=== PATIENT | female | born 1950 | race Caucasian/White ===

== ENCOUNTER 2016-04-13 13:42 | Inpatient (IN) | payer MEDICARE, OTHER ==
[2016-04-13] VITALS (13 sets, daily range): BP systolic 80–105; RESP 22–33; TEMP 99.1; BMI 24.8
[~2016-04-13] VITALS: Ht 157.5 cm; Wt 63.8 kg
[~2016-04-13 13:42] MED LIST: BACITRACIN 50,000 UNITS INJ IRRIG ONE; CISATRACURIUM 20 MG/10 ML IV ONE; DILAUDID 1 MG/ML AMP IV ONE; FENTANYL 100 MCG/2 ML AMP IV ONE; GLYCOPYRROLATE 0.2 MG/ML VIAL IV ONE; NEOSTIGMINE 10 MG/10 ML VIAL IV ONE; PHENYLEPHRINE 10 MG/ML VIAL IV ONE; PROPOFOL 20 ML PER ML IV ONE
[2016-04-13] MEDS ORDERED: SODIUM CHLORIDE 0.9% 2,000 ML ONE (14:50)
[2016-04-13] MEDS ORDERED: CEFTRIAXONE 1 GM VIAL ONE (16:08)
[2016-04-13] MEDS ORDERED: SODIUM CHLORIDE 0.9% 100 ML IV ONE (16:09)
[2016-04-13] MEDS ORDERED: INSULIN DRIP 1 UNIT/ML 100 ML IV SCH ×2 (17:30→17:55)
[2016-04-13] MEDS ORDERED: DEXTROSE 50% SYRINGE 50 ML IV PRN ×2 (17:30→17:55)
[2016-04-13] MEDS ORDERED: SODIUM CHLORIDE 0.9% 1,000 ML ONE (17:39)
[2016-04-13] MEDS ORDERED: SOD BICARB 8.4% SYR 50 ML IV PRN (17:55)
[2016-04-13] MEDS ORDERED: LORAZEPAM 2 MG/ML VIAL IV PRN (17:55)
[2016-04-13] MEDS ORDERED: SODIUM CHLOR 0.9% W/KCL 20MEQ 1,000 ML IV SCH (17:55)
[2016-04-13] MEDS ORDERED: PHARMACY TO DOSE IV SCH (17:55)
[2016-04-13] MEDS ORDERED: MORPHINE 2 MG/ML SYR IV PRN (17:55)
[2016-04-13] MEDS ORDERED: PROMETHAZINE 25 MG SUPP PR PRN (17:55)
[2016-04-13] MEDS ORDERED: METHYLPRED SOD SUCC 40 MG VIAL IV SCH (17:55)
[2016-04-13] MEDS ORDERED: PHARMACY TO DOSE VANCOMYCIN IV SCH (17:55)
[2016-04-13] MEDS ORDERED: ACETAMINOPHEN 325 MG TAB PO PRN (17:55)
[2016-04-13] MEDS ORDERED: BISACODYL 10 MG SUPP RECTAL PRN (17:55)
[2016-04-13] MEDS ORDERED: SODIUM CHLORIDE 0.9% 1,000 ML IV ONE (17:55)
[2016-04-13] MEDS ORDERED: ONDANSETRON 4 MG VIAL IV PRN (17:55)
[2016-04-13] MEDS ORDERED: SALINE FLUSH 10 ML FLUSH PRN ×2 (17:55)
[2016-04-13] MEDS ORDERED: PROMETHAZINE 25 MG/ML VIAL IV PRN (17:55)
[2016-04-13] MEDS ORDERED: NEB-XOPENEX 1.25 MG/3 ML INH PRN (17:55)
[2016-04-13] MEDS ORDERED: BISACODYL EC 5 MG TAB PO PRN (17:55)
[2016-04-13] MEDS ORDERED: MULTIVITS ADULT INJ 10 ML in SODIUM CHLORIDE 0.9% 1,000 ML IV ONE (18:30)
[2016-04-13] MEDS ORDERED: SALINE FLUSH 10 ML FLUSH SCH (20:00)
[2016-04-13] MEDS: SALINE FLUSH 10 ML FLUSH SCH (20:00)
[2016-04-13] MEDS ORDERED: VANCOMYCIN 1,250 MG in SODIUM CHLORIDE 0.9% 250 ML IV ONE (20:30)
[2016-04-13] MEDS: MULTIVITS/MINERALS (THERAGRAN M) TAB PO SCH (22:43)
[2016-04-13] MEDS: FOLIC ACID 1 MG TAB PO SCH (22:43)
[2016-04-13] MEDS: NICOTINE 21 MG/24 HR TRANSDERM SCH (22:44)
[2016-04-13] MEDS: FAMOTIDINE 20 MG INJ IV SCH (22:45)
[2016-04-13] MEDS: Atorvastatin 20 MG TAB PO SCH (22:50)
[2016-04-13] MEDS: THIAMINE 500 MG in SODIUM CHLORIDE 0.9% 100 ML IV SCH (22:56)
[2016-04-13] MEDS: NEB-BROVANA 15 MCG/2 ML INH SCH (23:37)
[2016-04-13] MEDS: DUONEB INH SCH (23:37)
[2016-04-13] MEDS: NEB-BUDESONIDE 0.5 MG INH SCH (23:37)
[2016-04-14] VITALS (39 sets, daily range): BP systolic 72–139; RESP 15–31; TEMP 97.8–98.2; Ht 157.5 cm; Wt 63.8 kg
[2016-04-14] MEDS: METHYLPRED SOD SUCC 40 MG VIAL IV SCH ×4 (00:28→23:11)
[2016-04-14] MEDS: DUONEB INH SCH ×6 (02:31→22:20)
[2016-04-14] MEDS: POTASSIUM CHLORIDE PREMIX 50 ML IV SCH ×4 (03:20→05:55)
[2016-04-14] MEDS: SODIUM CHLORIDE 0.9% FLUSH BAG 500 ML IV SCH (06:00)
[2016-04-14] MEDS ORDERED: SODIUM CHLORIDE 0.9% FLUSH BAG 500 ML IV SCH (06:00)
[2016-04-14] MEDS: NEB-BROVANA 15 MCG/2 ML INH SCH ×2 (06:21→18:14)
[2016-04-14] MEDS: NEB-BUDESONIDE 0.5 MG INH SCH ×2 (06:21→18:14)
[2016-04-14] MEDS ORDERED: MISSING DOSE XX ONE (08:50)
[2016-04-14] MEDS: SALINE FLUSH 10 ML FLUSH SCH ×2 (08:58→20:33)
[2016-04-14] MEDS: FAMOTIDINE 20 MG INJ IV SCH (08:58)
[2016-04-14] MEDS: THIAMINE 500 MG in SODIUM CHLORIDE 0.9% 100 ML IV SCH (09:00)
[2016-04-14] MEDS ORDERED: D5-NS W/KCL 20MEQ/L 1,000 ML IV SCH (09:25)
[2016-04-14] MEDS: NICOTINE 21 MG/24 HR TRANSDERM SCH (09:44)
[2016-04-14] MEDS: FOLIC ACID 1 MG TAB PO SCH (10:10)
[2016-04-14] MEDS: MULTIVITS/MINERALS (THERAGRAN M) TAB PO SCH (10:10)
[2016-04-14] MEDS: POLYETHYLENE GLYCOL 17 GM PACKET PO SCH (10:11)
[2016-04-14] MEDS ORDERED: Furosemide 20 MG/2 ML VIAL IV ONE (10:25)
[2016-04-14] MEDS ORDERED: GLUCAGON 1 MG VIAL IM PRN (10:25)
[2016-04-14] MEDS ORDERED: LEVEMIR INSULIN SUBQ SCH (10:25)
[2016-04-14] MEDS: MIDODRINE 10 MG TAB PO SCH ×2 (11:12→16:44)
[2016-04-14] MEDS: KCL CR 8 MEQ TAB PO SCH ×3 (11:12→20:34)
[2016-04-14] MEDS: MAGNESIUM SULF 1 GM/100 ML 100 ML IV SCH ×3 (11:41→14:35)
[2016-04-14] MEDS: ALBUMIN 12.5 GM/50 ML (25%) IV SCH ×3 (13:39→23:12)
[2016-04-14] MEDS: SUCRALFATE 1GM/10ML SUSP PO SCH (16:44)
[2016-04-14] MEDS: GABAPENTIN 300 MG CAP PO SCH ×3 (16:44→20:34)
[2016-04-14] MEDS: Atorvastatin 20 MG TAB PO SCH ×2 (19:50→20:33)
[2016-04-14] MEDS: MIRTAZAPINE 15 MG TAB PO SCH ×2 (19:51→20:34)
[2016-04-14] MEDS ORDERED: VANCOMYCIN 1,250 MG in SODIUM CHLORIDE 0.9% 250 ML IV SCH (23:00)
[2016-04-15] VITALS (23 sets, daily range): BP systolic 68–189; RESP 13–38; TEMP 97.5–98.6
[2016-04-15] MEDS: DUONEB INH SCH ×5 (02:38→20:05)
[2016-04-15] MEDS: SODIUM CHLORIDE 0.9% FLUSH BAG 500 ML IV SCH (04:39)
[2016-04-15] MEDS: SUCRALFATE 1GM/10ML SUSP PO SCH ×2 (06:15→16:00)
[2016-04-15] MEDS: MIDODRINE 10 MG TAB PO SCH (06:38)
[2016-04-15] MEDS: LEVOTHYROXINE 0.15 MG TAB PO SCH (06:38)
[2016-04-15] MEDS: NEB-BUDESONIDE 0.5 MG INH SCH ×2 (06:48→20:04)
[2016-04-15] MEDS: NEB-BROVANA 15 MCG/2 ML INH SCH ×2 (06:48→20:04)
[2016-04-15] MEDS ORDERED: Furosemide 20 MG/2 ML VIAL IV SCH ×2 (09:00)
[2016-04-15] MEDS ORDERED: KCL CR 8 MEQ TAB PO SCH (09:00)
[2016-04-15] MEDS: LEVEMIR INSULIN SUBQ SCH (09:05)
[2016-04-15] MEDS: FOLIC ACID 1 MG TAB PO SCH (09:06)
[2016-04-15] MEDS: MULTIVITS/MINERALS (THERAGRAN M) TAB PO SCH (09:06)
[2016-04-15] MEDS: GABAPENTIN 300 MG CAP PO SCH ×3 (09:06→21:23)
[2016-04-15] MEDS: SALINE FLUSH 10 ML FLUSH SCH ×2 (09:06→21:24)
[2016-04-15] MEDS: NICOTINE 21 MG/24 HR TRANSDERM SCH (09:07)
[2016-04-15] MEDS: POLYETHYLENE GLYCOL 17 GM PACKET PO SCH (09:08)
[2016-04-15] MEDS ORDERED: MISSING DOSE XX ONE (09:35)
[2016-04-15] MEDS: CEFTRIAXONE 1 GM in SODIUM CHLORIDE 0.9% 50 ML IV SCH (09:36)
[2016-04-15] MEDS: PREDNISONE 50 MG TAB PO SCH (09:36)
[2016-04-15] MEDS: CITALOPRAM 20 MG TAB PO SCH (10:01)
[2016-04-15] MEDS: MIRTAZAPINE 15 MG TAB PO SCH (21:23)
[2016-04-15] MEDS: Atorvastatin 20 MG TAB PO SCH (21:23)
[2016-04-16] VITALS (12 sets, daily range): BP systolic 96–128; RESP 16–18; TEMP 97.4–98.4
[2016-04-16] MEDS: LEVOTHYROXINE 0.15 MG TAB PO SCH (06:25)
[2016-04-16] MEDS: SUCRALFATE 1GM/10ML SUSP PO SCH ×2 (06:25→16:00)
[2016-04-16] MEDS: SODIUM CHLORIDE 0.9% FLUSH BAG 500 ML IV SCH (06:25)
[2016-04-16] MEDS: NEB-BUDESONIDE 0.5 MG INH SCH ×2 (07:44→18:54)
[2016-04-16] MEDS: NEB-BROVANA 15 MCG/2 ML INH SCH ×2 (07:44→18:54)
[2016-04-16] MEDS: DUONEB INH SCH ×3 (07:44→18:54)
[2016-04-16] MEDS: CEFTRIAXONE 1 GM in SODIUM CHLORIDE 0.9% 50 ML IV SCH (08:27)
[2016-04-16] MEDS: SALINE FLUSH 10 ML FLUSH SCH ×2 (08:27→20:53)
[2016-04-16] MEDS: NICOTINE 21 MG/24 HR TRANSDERM SCH (08:28)
[2016-04-16] MEDS: CITALOPRAM 20 MG TAB PO SCH (08:28)
[2016-04-16] MEDS: PREDNISONE 50 MG TAB PO SCH (08:28)
[2016-04-16] MEDS: MULTIVITS/MINERALS (THERAGRAN M) TAB PO SCH (08:28)
[2016-04-16] MEDS: GABAPENTIN 300 MG CAP PO SCH ×3 (08:28→20:54)
[2016-04-16] MEDS: Furosemide 20 MG TAB PO SCH (08:29)
[2016-04-16] MEDS: FOLIC ACID 1 MG TAB PO SCH (08:29)
[2016-04-16] MEDS: POLYETHYLENE GLYCOL 17 GM PACKET PO SCH (08:29)
[2016-04-16] MEDS: LEVEMIR INSULIN SUBQ SCH (08:55)
[2016-04-16] MEDS ORDERED: CEFTRIAXONE 1 GM in SODIUM CHLORIDE 0.9% 50 ML IV ONE (10:50)
[2016-04-16] MEDS ORDERED: CHLORDIAZEPOXIDE 10 MG CAP PO PRN (18:05)
[2016-04-16] MEDS: Atorvastatin 20 MG TAB PO SCH (20:54)
[2016-04-16] MEDS: MIRTAZAPINE 15 MG TAB PO SCH (20:54)
[2016-04-17] VITALS (19 sets, daily range): BP systolic 93–140; RESP 14–20; TEMP 97.2–99.8
[2016-04-17] MEDS: LEVOTHYROXINE 0.15 MG TAB PO SCH (05:19)
[2016-04-17] MEDS: SUCRALFATE 1GM/10ML SUSP PO SCH ×2 (05:19→17:57)
[2016-04-17] MEDS: SODIUM CHLORIDE 0.9% FLUSH BAG 500 ML IV SCH ×2 (05:19→05:20)
[2016-04-17] MEDS: NEB-BUDESONIDE 0.5 MG INH SCH ×2 (06:35→19:14)
[2016-04-17] MEDS: DUONEB INH SCH ×3 (06:35→19:14)
[2016-04-17] MEDS: NEB-BROVANA 15 MCG/2 ML INH SCH ×2 (06:35→19:14)
[2016-04-17] MEDS ORDERED: MISSING DOSE XX ONE (07:50)
[2016-04-17] MEDS: SALINE FLUSH 10 ML FLUSH SCH ×2 (08:57→21:09)
[2016-04-17] MEDS: LEVEMIR INSULIN SUBQ SCH (08:59)
[2016-04-17] MEDS: CEFTRIAXONE 2 GM in SODIUM CHLORIDE 0.9% 50 ML IV SCH (08:59)
[2016-04-17] MEDS: GABAPENTIN 300 MG CAP PO SCH ×3 (09:00→21:09)
[2016-04-17] MEDS: Furosemide 20 MG TAB PO SCH (09:00)
[2016-04-17] MEDS: PREDNISONE 50 MG TAB PO SCH (09:00)
[2016-04-17] MEDS: FOLIC ACID 1 MG TAB PO SCH (09:00)
[2016-04-17] MEDS: MULTIVITS/MINERALS (THERAGRAN M) TAB PO SCH (09:00)
[2016-04-17] MEDS: NICOTINE 21 MG/24 HR TRANSDERM SCH (09:02)
[2016-04-17] MEDS: POLYETHYLENE GLYCOL 17 GM PACKET PO SCH (09:23)
[2016-04-17] MEDS: CITALOPRAM 20 MG TAB PO SCH (09:23)
[2016-04-17] MEDS ORDERED: Furosemide 20 MG/2 ML VIAL IV ONE ×2 (10:10→18:55)
[2016-04-17] MEDS ORDERED: FENTANYL 100 MCG/2 ML AMP ONE (15:19)
[2016-04-17] MEDS ORDERED: MIDAZOLAM 2 MG/2 ML INJ ONE (15:19)
[2016-04-17] MEDS ORDERED: LIDOCAINE 2% 20 ML INJ ONE (16:53)
[2016-04-17] MEDS ORDERED: SOD BICARB 8.4% VIAL 50 ML IV ONE (16:53)
[2016-04-17] MEDS ORDERED: FENTANYL 250 MCG/5 ML AMP IV ONE (17:20)
[2016-04-17] MEDS ORDERED: MIDAZOLAM 2 MG/2 ML INJ IV ONE (17:20)
[2016-04-17] MEDS: MIRTAZAPINE 15 MG TAB PO SCH (21:09)
[2016-04-17] MEDS: Atorvastatin 20 MG TAB PO SCH (21:09)
[2016-04-18] VITALS (37 sets, daily range): BP systolic 72–144; RESP 9–21; TEMP 97.3–98.6
[2016-04-18] MEDS: SODIUM CHLORIDE 0.9% FLUSH BAG 500 ML IV SCH ×4 (03:20→23:35)
[2016-04-18] MEDS: SUCRALFATE 1GM/10ML SUSP PO SCH ×2 (05:19→16:00)
[2016-04-18] MEDS: LEVOTHYROXINE 0.15 MG TAB PO SCH (05:20)
[2016-04-18] MEDS: NEB-BROVANA 15 MCG/2 ML INH SCH ×2 (07:23→19:28)
[2016-04-18] MEDS: DUONEB INH SCH ×3 (07:23→19:28)
[2016-04-18] MEDS: NEB-BUDESONIDE 0.5 MG INH SCH ×2 (07:23→19:28)
[2016-04-18] MEDS: SALINE FLUSH 10 ML FLUSH SCH ×2 (08:00→20:15)
[2016-04-18] MEDS: LEVEMIR INSULIN SUBQ SCH (09:00)
[2016-04-18] MEDS: MULTIVITS/MINERALS (THERAGRAN M) TAB PO SCH (09:00)
[2016-04-18] MEDS: FOLIC ACID 1 MG TAB PO SCH (09:00)
[2016-04-18] MEDS: NICOTINE 21 MG/24 HR TRANSDERM SCH (09:00)
[2016-04-18] MEDS: PREDNISONE 20 MG TAB PO SCH (09:00)
[2016-04-18] MEDS: GABAPENTIN 300 MG CAP PO SCH ×3 (09:00→20:15)
[2016-04-18] MEDS: POLYETHYLENE GLYCOL 17 GM PACKET PO SCH (09:00)
[2016-04-18] MEDS: CITALOPRAM 20 MG TAB PO SCH (09:00)
[2016-04-18] MEDS ORDERED: SODIUM CHLORIDE 0.9% 1,000 ML IV SCH (09:35)
[2016-04-18] MEDS ORDERED: DUONEB INH ONE (09:35)
[2016-04-18] MEDS ORDERED: GLYCOPYRROLATE 0.2 MG/ML VIAL IV ONE (09:35)
[2016-04-18] MEDS ORDERED: MIDAZOLAM 2 MG/2 ML INJ IV ONE (09:35)
[2016-04-18] MEDS: Furosemide 20 MG/2 ML VIAL IV SCH (11:16)
[2016-04-18] MEDS: DEXTROSE 50% SYRINGE 50 ML IV PRN (11:16)
[2016-04-18] MEDS: CEFTRIAXONE 2 GM in SODIUM CHLORIDE 0.9% 50 ML IV SCH (11:16)
[2016-04-18] MEDS ORDERED: ONDANSETRON 4 MG VIAL IV PRN (15:55)
[2016-04-18] MEDS ORDERED: MEPERIDINE 25 MG/ML IV PRN (15:55)
[2016-04-18] MEDS ORDERED: OXYCODONE 5 MG TAB PO PRN (15:55)
[2016-04-18] MEDS ORDERED: DILAUDID 1 MG/ML AMP IV PRN ×2 (15:55→17:25)
[2016-04-18] MEDS ORDERED: MORPHINE 2 MG/ML SYR IV PRN (15:55)
[2016-04-18] MEDS ORDERED: NEB-ALBUTEROL 2.5 MG/3 ML INH PRN (17:30)
[2016-04-18] MEDS ORDERED: NEB-ALBUTEROL 2.5 MG/3 ML INH ONE (17:36)
[2016-04-18] MEDS ORDERED: MORPHINE 4 MG/ML SYR ONE (17:51)
[2016-04-18] MEDS: MORPHINE 4 MG/ML SYR IV PRN ×2 (17:52→18:14)
[2016-04-18] MEDS: Atorvastatin 20 MG TAB PO SCH (20:15)
[2016-04-18] MEDS: MIRTAZAPINE 15 MG TAB PO SCH (20:15)
[2016-04-18] MEDS: SODIUM CHLORIDE 0.9% 1,000 ML IV SCH ×2 (21:33→23:36)
[2016-04-19] VITALS (25 sets, daily range): BP systolic 77–142; RESP 12–26; TEMP 97.9–99
[2016-04-19] MEDS: SUCRALFATE 1GM/10ML SUSP PO SCH ×2 (06:53→16:01)
[2016-04-19] MEDS: LEVOTHYROXINE 0.15 MG TAB PO SCH (06:53)
[2016-04-19] MEDS: NEB-BUDESONIDE 0.5 MG INH SCH ×2 (07:18→18:54)
[2016-04-19] MEDS: DUONEB INH SCH ×3 (07:18→18:54)
[2016-04-19] MEDS: NEB-BROVANA 15 MCG/2 ML INH SCH ×2 (07:18→18:54)
[2016-04-19] MEDS ORDERED: SODIUM CHLORIDE 0.9% 1,000 ML IV SCH (07:35)
[2016-04-19] MEDS: SALINE FLUSH 10 ML FLUSH SCH ×2 (08:25→20:59)
[2016-04-19] MEDS: POLYETHYLENE GLYCOL 17 GM PACKET PO SCH (08:26)
[2016-04-19] MEDS: Furosemide 20 MG/2 ML VIAL IV SCH ×2 (08:37→16:03)
[2016-04-19] MEDS: FOLIC ACID 1 MG TAB PO SCH (08:38)
[2016-04-19] MEDS: CEFTRIAXONE 2 GM in SODIUM CHLORIDE 0.9% 50 ML IV SCH (08:38)
[2016-04-19] MEDS: GABAPENTIN 300 MG CAP PO SCH ×3 (08:40→21:02)
[2016-04-19] MEDS: PREDNISONE 20 MG TAB PO SCH (08:40)
[2016-04-19] MEDS: MULTIVITS/MINERALS (THERAGRAN M) TAB PO SCH (08:40)
[2016-04-19] MEDS: CITALOPRAM 20 MG TAB PO SCH (08:40)
[2016-04-19] MEDS: NICOTINE 21 MG/24 HR TRANSDERM SCH (08:41)
[2016-04-19] MEDS: Hydrocodone/APAP 10/325 MG TAB PO PRN (10:29)
[2016-04-19] MEDS: LEVEMIR INSULIN SUBQ SCH (12:16)
[2016-04-19] MEDS: MIRTAZAPINE 15 MG TAB PO SCH (21:02)
[2016-04-19] MEDS: Atorvastatin 20 MG TAB PO SCH (21:02)
[2016-04-20] VITALS (19 sets, daily range): BP systolic 88–137; RESP 11–20; TEMP 98–98.9
[2016-04-20] MEDS: SODIUM CHLORIDE 0.9% FLUSH BAG 500 ML IV SCH ×2 (06:00)
[2016-04-20] MEDS: DEXTROSE 50% SYRINGE 50 ML IV PRN (06:08)
[2016-04-20] MEDS: NEB-BUDESONIDE 0.5 MG INH SCH ×2 (06:50→19:36)
[2016-04-20] MEDS: NEB-BROVANA 15 MCG/2 ML INH SCH ×2 (06:50→19:36)
[2016-04-20] MEDS: DUONEB INH SCH ×3 (06:50→19:36)
[2016-04-20] MEDS: LEVOTHYROXINE 0.15 MG TAB PO SCH (07:35)
[2016-04-20] MEDS: SUCRALFATE 1GM/10ML SUSP PO SCH ×2 (07:35→16:07)
[2016-04-20] MEDS: LEVEMIR INSULIN SUBQ SCH (08:20)
[2016-04-20] MEDS: MULTIVITS/MINERALS (THERAGRAN M) TAB PO SCH (08:24)
[2016-04-20] MEDS: FOLIC ACID 1 MG TAB PO SCH (08:24)
[2016-04-20] MEDS: CITALOPRAM 20 MG TAB PO SCH (08:25)
[2016-04-20] MEDS: GABAPENTIN 300 MG CAP PO SCH ×3 (08:25→21:53)
[2016-04-20] MEDS: PREDNISONE 20 MG TAB PO SCH (08:25)
[2016-04-20] MEDS: Furosemide 20 MG/2 ML VIAL IV SCH ×2 (08:25→16:08)
[2016-04-20] MEDS: SALINE FLUSH 10 ML FLUSH SCH ×2 (08:26→21:52)
[2016-04-20] MEDS: CEFTRIAXONE 2 GM in SODIUM CHLORIDE 0.9% 50 ML IV SCH (08:26)
[2016-04-20] MEDS: NICOTINE 21 MG/24 HR TRANSDERM SCH (08:27)
[2016-04-20] MEDS: POLYETHYLENE GLYCOL 17 GM PACKET PO SCH (08:27)
[2016-04-20] MEDS: Hydrocodone/APAP 10/325 MG TAB PO PRN (08:29)
[2016-04-20] MEDS: LEVOFLOXACIN 750 MG TAB PO SCH (09:42)
[2016-04-20] MEDS: OXYCODONE 5 MG TAB PO PRN ×2 (12:44→21:53)
[2016-04-20] MEDS: KCL CR 20 MEQ TAB PO SCH ×2 (16:27→18:45)
[2016-04-20] MEDS ORDERED: MISSING DOSE XX ONE (18:05)
[2016-04-20] MEDS: Aspirin 325 MG TAB PO SCH (21:51)
[2016-04-20] MEDS: MIRTAZAPINE 15 MG TAB PO SCH (21:52)
[2016-04-20] MEDS: Atorvastatin 20 MG TAB PO SCH (21:52)
[2016-04-21] VITALS (7 sets, daily range): BP systolic 90–117; RESP 16–20; TEMP 98–98.6
[2016-04-21] MEDS: SODIUM CHLORIDE 0.9% FLUSH BAG 500 ML IV SCH ×2 (05:52)
[2016-04-21] MEDS: LEVOTHYROXINE 0.15 MG TAB PO SCH (06:14)
[2016-04-21] MEDS: SUCRALFATE 1GM/10ML SUSP PO SCH ×2 (06:14→16:09)
[2016-04-21] MEDS: NEB-BROVANA 15 MCG/2 ML INH SCH ×2 (07:37→19:49)
[2016-04-21] MEDS: NEB-BUDESONIDE 0.5 MG INH SCH ×2 (07:37→19:49)
[2016-04-21] MEDS: DUONEB INH SCH ×3 (07:37→19:49)
[2016-04-21] MEDS: OXYCODONE 5 MG TAB PO PRN ×2 (08:03→12:51)
[2016-04-21] MEDS: MULTIVITS/MINERALS (THERAGRAN M) TAB PO SCH (08:29)
[2016-04-21] MEDS: FOLIC ACID 1 MG TAB PO SCH (08:29)
[2016-04-21] MEDS: CITALOPRAM 20 MG TAB PO SCH (08:29)
[2016-04-21] MEDS: PREDNISONE 20 MG TAB PO SCH (08:29)
[2016-04-21] MEDS: LEVOFLOXACIN 750 MG TAB PO SCH (08:29)
[2016-04-21] MEDS: GABAPENTIN 300 MG CAP PO SCH ×3 (08:29→20:21)
[2016-04-21] MEDS: Aspirin 325 MG TAB PO SCH (08:29)
[2016-04-21] MEDS: NICOTINE 21 MG/24 HR TRANSDERM SCH (08:32)
[2016-04-21] MEDS: LEVEMIR INSULIN SUBQ SCH (08:32)
[2016-04-21] MEDS: POLYETHYLENE GLYCOL 17 GM PACKET PO SCH (08:33)
[2016-04-21] MEDS: SALINE FLUSH 10 ML FLUSH SCH ×2 (08:38→20:22)
[2016-04-21] MEDS: Atorvastatin 20 MG TAB PO SCH (20:21)
[2016-04-21] MEDS: MIRTAZAPINE 15 MG TAB PO SCH (20:21)
[2016-04-22] MEDS: OXYCODONE 5 MG TAB PO PRN ×4 (00:24→23:31)
[2016-04-22 04:12] VITALS: BP_SYST 125; RESP 16; TEMP 97.6
[2016-04-22] MEDS: SODIUM CHLORIDE 0.9% FLUSH BAG 500 ML IV SCH ×2 (06:00→06:48)
[2016-04-22] MEDS: DUONEB INH SCH ×3 (06:45→18:59)
[2016-04-22] MEDS: NEB-BROVANA 15 MCG/2 ML INH SCH ×2 (06:45→18:59)
[2016-04-22] MEDS: NEB-BUDESONIDE 0.5 MG INH SCH ×2 (06:45→18:59)
[2016-04-22] MEDS: LEVOTHYROXINE 0.15 MG TAB PO SCH (06:48)
[2016-04-22] MEDS: SUCRALFATE 1GM/10ML SUSP PO SCH ×2 (06:48→14:57)
[2016-04-22 07:41] VITALS: BP_SYST 109; RESP 20; TEMP 98.1
[2016-04-22] MEDS: NICOTINE 21 MG/24 HR TRANSDERM SCH (08:45)
[2016-04-22] MEDS: POLYETHYLENE GLYCOL 17 GM PACKET PO SCH (08:45)
[2016-04-22] MEDS: MULTIVITS/MINERALS (THERAGRAN M) TAB PO SCH (08:47)
[2016-04-22] MEDS: Aspirin 325 MG TAB PO SCH (08:47)
[2016-04-22] MEDS: GABAPENTIN 300 MG CAP PO SCH ×3 (08:47→20:34)
[2016-04-22] MEDS: PREDNISONE 20 MG TAB PO SCH (08:47)
[2016-04-22] MEDS: LEVOFLOXACIN 750 MG TAB PO SCH (08:48)
[2016-04-22] MEDS: FOLIC ACID 1 MG TAB PO SCH (08:48)
[2016-04-22] MEDS: SALINE FLUSH 10 ML FLUSH SCH ×2 (08:49→20:33)
[2016-04-22] MEDS: CITALOPRAM 20 MG TAB PO SCH (09:24)
[2016-04-22] MEDS: LEVEMIR INSULIN SUBQ SCH (10:03)
[2016-04-22 11:06] VITALS: BP_SYST 92; RESP 20; TEMP 98.2
[2016-04-22 15:04] VITALS: BP_SYST 97; RESP 20; TEMP 98.2
[2016-04-22 19:30] VITALS: BP_SYST 98; RESP 20; TEMP 98
[2016-04-22] MEDS: Atorvastatin 20 MG TAB PO SCH (20:33)
[2016-04-22] MEDS: MIRTAZAPINE 15 MG TAB PO SCH (20:34)
[2016-04-23] VITALS (7 sets, daily range): BP systolic 90–134; RESP 18–20; TEMP 97.7–98.4
[2016-04-23] MEDS: SODIUM CHLORIDE 0.9% FLUSH BAG 500 ML IV SCH ×2 (06:00)
[2016-04-23] MEDS: OXYCODONE 5 MG TAB PO PRN ×3 (06:01→14:31)
[2016-04-23] MEDS: DUONEB INH SCH ×3 (06:27→18:42)
[2016-04-23] MEDS: NEB-BUDESONIDE 0.5 MG INH SCH ×2 (06:27→18:42)
[2016-04-23] MEDS: NEB-BROVANA 15 MCG/2 ML INH SCH ×2 (06:27→18:42)
[2016-04-23] MEDS: SUCRALFATE 1GM/10ML SUSP PO SCH ×3 (07:44→14:31)
[2016-04-23] MEDS: LEVOTHYROXINE 0.15 MG TAB PO SCH (07:45)
[2016-04-23] MEDS: SALINE FLUSH 10 ML FLUSH SCH ×2 (08:00→21:11)
[2016-04-23] MEDS: CITALOPRAM 20 MG TAB PO SCH (08:49)
[2016-04-23] MEDS: Aspirin 325 MG TAB PO SCH (08:49)
[2016-04-23] MEDS: MULTIVITS/MINERALS (THERAGRAN M) TAB PO SCH (08:49)
[2016-04-23] MEDS: LEVOFLOXACIN 750 MG TAB PO SCH (08:49)
[2016-04-23] MEDS: POLYETHYLENE GLYCOL 17 GM PACKET PO SCH (08:50)
[2016-04-23] MEDS: PREDNISONE 20 MG TAB PO SCH (08:50)
[2016-04-23] MEDS: FOLIC ACID 1 MG TAB PO SCH (08:50)
[2016-04-23] MEDS: GABAPENTIN 300 MG CAP PO SCH ×3 (08:59→21:11)
[2016-04-23] MEDS ORDERED: LEVEMIR INSULIN SUBQ SCH ×2 (09:00)
[2016-04-23] MEDS: NICOTINE 21 MG/24 HR TRANSDERM SCH (09:00)
[2016-04-23] MEDS: Atorvastatin 20 MG TAB PO SCH (21:11)
[2016-04-23] MEDS: MIRTAZAPINE 15 MG TAB PO SCH (21:11)
[2016-04-23] MEDS: LEVEMIR INSULIN SUBQ SCH (21:12)
[2016-04-24] VITALS (11 sets, daily range): BP systolic 85–131; RESP 18–20; TEMP 97.7–98.8
[2016-04-24] MEDS: SODIUM CHLORIDE 0.9% FLUSH BAG 500 ML IV SCH ×2 (04:55→04:57)
[2016-04-24] MEDS: LEVOTHYROXINE 0.15 MG TAB PO SCH (06:38)
[2016-04-24] MEDS: SUCRALFATE 1GM/10ML SUSP PO SCH ×2 (06:38→17:27)
[2016-04-24] MEDS: OXYCODONE 5 MG TAB PO PRN ×2 (06:38→11:20)
[2016-04-24] MEDS: DUONEB INH SCH ×3 (07:29→19:21)
[2016-04-24] MEDS: NEB-BUDESONIDE 0.5 MG INH SCH ×2 (07:29→19:21)
[2016-04-24] MEDS: NEB-BROVANA 15 MCG/2 ML INH SCH ×2 (07:29→19:21)
[2016-04-24] MEDS: SALINE FLUSH 10 ML FLUSH SCH ×2 (08:00→20:48)
[2016-04-24] MEDS: FOLIC ACID 1 MG TAB PO SCH (08:52)
[2016-04-24] MEDS: Aspirin 325 MG TAB PO SCH (08:52)
[2016-04-24] MEDS: MULTIVITS/MINERALS (THERAGRAN M) TAB PO SCH (08:52)
[2016-04-24] MEDS: LEVOFLOXACIN 750 MG TAB PO SCH (08:52)
[2016-04-24] MEDS: GABAPENTIN 300 MG CAP PO SCH ×3 (08:52→20:48)
[2016-04-24] MEDS: NICOTINE 21 MG/24 HR TRANSDERM SCH (08:53)
[2016-04-24] MEDS ORDERED: PREDNISONE 10 MG TAB PO SCH (09:00)
[2016-04-24] MEDS: POLYETHYLENE GLYCOL 17 GM PACKET PO SCH (09:00)
[2016-04-24] MEDS: CITALOPRAM 20 MG TAB PO SCH (09:18)
[2016-04-24] MEDS: MIRTAZAPINE 15 MG TAB PO SCH (20:48)
[2016-04-24] MEDS: Atorvastatin 20 MG TAB PO SCH (20:48)
[2016-04-24] MEDS: LEVEMIR INSULIN SUBQ SCH (20:49)
== END 2016-04-24 22:46 | DRG 853 ==
LOC: ENRESERVDT → ENRESERVTM → ER 13:42 → EMR 18:31 → CCU 20:07 → 4THE 04-15 18:42 → ICU 04-18 18:38 → PCU2 04-20 17:23 → 4NT 04-21 18:42
PROVIDERS: ADMIT Internal Medicine; ATTEND Internal Medicine
PROC: 0TT10ZZ Resection of Left Kidney, Open Approach (ICD-10-PCS; principal; 2016-04-13)
PROC: 0TT70ZZ Resection of Left Ureter, Open Approach (ICD-10-PCS; 2016-04-13)
PROC: 02HV33Z Insertion of Infusion Device into Superior Vena Cava, Percutaneous Approach (ICD-10-PCS; 2016-04-14)
PROC: B548ZZA Ultrasonography of Superior Vena Cava, Guidance (ICD-10-PCS; 2016-04-14)
PROC: 0W9G00Z Drainage of Peritoneal Cavity with Drainage Device, Open Approach (ICD-10-PCS; 2016-04-18)
DX: A41.51 Sepsis due to Escherichia coli [E. coli] (principal); J96.21 Acute and chronic respiratory failure with hypoxia; I63.9 Cerebral infarction, unspecified; I21.4 Non-ST elevation (NSTEMI) myocardial infarction; G93.41 Metabolic encephalopathy; E10.40 Type 1 diabetes mellitus with diabetic neuropathy, unspecified; I95.9 Hypotension, unspecified; I50.21 Acute systolic (congestive) heart failure; D69.6 Thrombocytopenia, unspecified; N17.9 Acute kidney failure, unspecified; E87.1 Hypo-osmolality and hyponatremia; J44.1 Chronic obstructive pulmonary disease with (acute) exacerbation; K70.30 Alcoholic cirrhosis of liver without ascites; E10.65 Type 1 diabetes mellitus with hyperglycemia; Z99.81 Dependence on supplemental oxygen; Z72.0 Tobacco use; D64.9 Anemia, unspecified; E03.9 Hypothyroidism, unspecified; R26.9 Unspecified abnormalities of gait and mobility; N30.80 Other cystitis without hematuria; B96.20 Unspecified Escherichia coli [E. coli] as the cause of diseases classified elsewhere; K80.20 Calculus of gallbladder without cholecystitis without obstruction; K70.10 Alcoholic hepatitis without ascites; Z91.81 History of falling; Z86.73 Personal history of transient ischemic attack (TIA), and cerebral infarction without residual deficits; M19.90 Unspecified osteoarthritis, unspecified site; Z79.82 Long term (current) use of aspirin; Z79.02 Long term (current) use of antithrombotics/antiplatelets; Z79.4 Long term (current) use of insulin; F41.9 Anxiety disorder, unspecified; F32.9 Major depressive disorder, single episode, unspecified
CPT/HCPCS: 36415; 36430; 36569; 36600; 49405; 70450; 70548; 70551; 71010; 74150; 74176; 76937; 80048; 80053; 80061; 80185; 80307; 80320; 81001; 82009; 82533; 82553; 82570; 82607; 82746; 82803; 82947; 83036; 83540; 83605; 83690; 83735; 83880; 83935; 84100; 84145; 84300; 84439; 84443; 84466; 84484; 85007; 85014; 85018; 85025; 85027; 85610; 85730; 86701; 86738; 86803; 86850; 86900; 86901; 86927; 87040; 87071; 87077; 87088; 87186; 87278; 87299; 88307; 93005; 93306; 93880; 94640; 94799; 96361; 96365; 96366; 96367; 99232; 99233; 99239; 99291

== ENCOUNTER 2016-04-24 09:49 | Inpatient (IN) | payer MEDICARE, OTHER ==
[~2016-04-24] VITALS: Ht 1889.8 cm; Wt 88.5 kg
[2016-04-24] MEDS ORDERED: ALBUTEROL HFA INH PRN (14:00)
[2016-04-24] MEDS ORDERED: POLYETHYLENE GLYCOL 17 GM PACKET PO PRN (14:00)
[2016-04-24] MEDS ORDERED: GLUCAGON 1 MG VIAL IM PRN (14:00)
[2016-04-24] MEDS ORDERED: PNEUMO VAC 25 MCG/0.5 ML VL IM.VACC ONE (14:00)
[2016-04-24] MEDS ORDERED: DEXTROSE 50% SYRINGE 50 ML IV PRN (14:00)
[2016-04-24] MEDS ORDERED: ACETAMINOPHEN 325 MG TAB PO PRN (14:00)
[2016-04-24] MEDS: GABAPENTIN 300 MG CAP PO SCH ×2 (16:00→21:00)
[2016-04-24] MEDS ORDERED: LEVEMIR INSULIN SUBQ SCH (21:00)
[2016-04-24] MEDS ORDERED: TUBERCULIN PPD 5 UNIT SYR ID.VACC ONE (21:00)
[2016-04-24] MEDS: MIRTAZAPINE 15 MG TAB PO SCH (21:00)
[2016-04-24] MEDS: Atorvastatin 20 MG TAB PO SCH (21:00)
[2016-04-24] MEDS: METFORMIN 500 MG TAB PO SCH (21:00)
[2016-04-24] MEDS: SITAGLIPTIN 50 MG TAB PO SCH (21:00)
[2016-04-24 23:27] VITALS: BMI 26.6
[2016-04-24 23:32] VITALS: BP_SYST 104; RESP 20; TEMP 98.4
[2016-04-24 23:34] VITALS: BP_SYST 100
[2016-04-25 02:22] VITALS: RESP 18
[2016-04-25] MEDS: Hydrocodone/APAP 10/325 MG TAB PO PRN ×2 (03:55→16:30)
[2016-04-25] MEDS: LEVOTHYROXINE 0.15 MG TAB PO SCH (06:01)
[2016-04-25 09:33] VITALS: Ht 1889.8 cm; Wt 88.5 kg
[2016-04-25 09:53] VITALS: TEMP 98.3
[2016-04-25 09:54] VITALS: BP_SYST 101; RESP 20
[2016-04-25] MEDS: METFORMIN 500 MG TAB PO SCH ×2 (10:53→22:21)
[2016-04-25] MEDS: LEVOFLOXACIN 750 MG TAB PO SCH (10:54)
[2016-04-25] MEDS: CLOPIDOGREL 75 MG TAB PO SCH (10:54)
[2016-04-25] MEDS: SITAGLIPTIN 50 MG TAB PO SCH ×2 (10:54→22:20)
[2016-04-25] MEDS: FOLIC ACID 1 MG TAB PO SCH (10:55)
[2016-04-25] MEDS: ASPIRIN EC 81 MG TAB PO SCH (10:55)
[2016-04-25] MEDS: BUSPIRONE HCL 15 MG TAB PO SCH (10:55)
[2016-04-25] MEDS: GABAPENTIN 300 MG CAP PO SCH ×3 (10:55→22:21)
[2016-04-25] MEDS: CITALOPRAM 20 MG TAB PO SCH (10:56)
[2016-04-25] MEDS: MULTIVITS/MINERALS (THERAGRAN M) TAB PO SCH (10:56)
[2016-04-25] MEDS: NICOTINE 21 MG/24 HR TRANSDERM SCH (10:57)
[2016-04-25] MEDS: ENOXAPARIN 40 MG/0.4 ML SYR SUBQ SCH (10:58)
[2016-04-25 21:01] VITALS: BP_SYST 96; RESP 20; TEMP 97.3
[2016-04-25] MEDS: Atorvastatin 20 MG TAB PO SCH (22:21)
[2016-04-25] MEDS: MIRTAZAPINE 15 MG TAB PO SCH (22:21)
[2016-04-26] MEDS: Hydrocodone/APAP 10/325 MG TAB PO PRN ×3 (00:39→20:39)
[2016-04-26 03:03] VITALS: BP_SYST 100; RESP 20; TEMP 98.2
[2016-04-26] MEDS: LEVOTHYROXINE 0.15 MG TAB PO SCH (06:10)
[2016-04-26] MEDS: FOLIC ACID 1 MG TAB PO SCH (08:48)
[2016-04-26] MEDS: ASPIRIN EC 81 MG TAB PO SCH (08:48)
[2016-04-26] MEDS: BUSPIRONE HCL 15 MG TAB PO SCH (08:49)
[2016-04-26] MEDS: CITALOPRAM 20 MG TAB PO SCH (08:49)
[2016-04-26] MEDS: LEVOFLOXACIN 750 MG TAB PO SCH (08:50)
[2016-04-26] MEDS: SITAGLIPTIN 50 MG TAB PO SCH ×2 (08:50→20:40)
[2016-04-26] MEDS: METFORMIN 500 MG TAB PO SCH ×2 (08:50→20:40)
[2016-04-26] MEDS: MULTIVITS/MINERALS (THERAGRAN M) TAB PO SCH (08:51)
[2016-04-26] MEDS: GABAPENTIN 300 MG CAP PO SCH ×3 (08:51→20:39)
[2016-04-26] MEDS: ENOXAPARIN 40 MG/0.4 ML SYR SUBQ SCH (08:52)
[2016-04-26] MEDS: NICOTINE 21 MG/24 HR TRANSDERM SCH (08:52)
[2016-04-26] MEDS: CLOPIDOGREL 75 MG TAB PO SCH (09:00)
[2016-04-26] MEDS ORDERED: Furosemide 20 MG TAB PO ONE (09:00)
[2016-04-26 10:12] VITALS: TEMP 97.7
[2016-04-26 10:14] VITALS: BP_SYST 91
[2016-04-26 10:16] VITALS: RESP 18
[2016-04-26 15:56] VITALS: BP_SYST 80; RESP 20; TEMP 97.5
[2016-04-26] MEDS: MIRTAZAPINE 15 MG TAB PO SCH (20:40)
[2016-04-26] MEDS: Atorvastatin 20 MG TAB PO SCH (20:41)
[2016-04-26] MEDS: SKIN TEST: READ AND RECORD XX SCH (20:43)
[2016-04-27] VITALS (10 sets, daily range): BP systolic 88–110; RESP 20; TEMP 97.9–98.9
[2016-04-27] MEDS: LEVOTHYROXINE 0.15 MG TAB PO SCH (06:01)
[2016-04-27] MEDS: ASPIRIN EC 81 MG TAB PO SCH (08:08)
[2016-04-27] MEDS: FOLIC ACID 1 MG TAB PO SCH (08:08)
[2016-04-27] MEDS: CITALOPRAM 20 MG TAB PO SCH (08:09)
[2016-04-27] MEDS: METFORMIN 500 MG TAB PO SCH (08:09)
[2016-04-27] MEDS: BUSPIRONE HCL 15 MG TAB PO SCH (08:09)
[2016-04-27] MEDS: LEVOFLOXACIN 750 MG TAB PO SCH (08:10)
[2016-04-27] MEDS: GABAPENTIN 300 MG CAP PO SCH (08:10)
[2016-04-27] MEDS: SITAGLIPTIN 50 MG TAB PO SCH (08:10)
[2016-04-27] MEDS: MULTIVITS/MINERALS (THERAGRAN M) TAB PO SCH (08:11)
[2016-04-27] MEDS: NICOTINE 21 MG/24 HR TRANSDERM SCH (08:11)
[2016-04-27] MEDS: CLOPIDOGREL 75 MG TAB PO SCH (08:11)
[2016-04-27] MEDS: ENOXAPARIN 40 MG/0.4 ML SYR SUBQ SCH (08:12)
[2016-04-27] MEDS: Hydrocodone/APAP 10/325 MG TAB PO PRN ×2 (08:18→15:07)
[2016-04-27] MEDS: GABAPENTIN 100 MG CAP PO SCH ×2 (16:44→20:59)
[2016-04-27] MEDS: Atorvastatin 20 MG TAB PO SCH (20:59)
[2016-04-27] MEDS: MIRTAZAPINE 15 MG TAB PO SCH (20:59)
[2016-04-28 00:35] VITALS: BP_SYST 102; RESP 20; TEMP 98.3
[2016-04-28 01:07] VITALS: BP_SYST 108; RESP 18; TEMP 98.6
[2016-04-28] MEDS: LEVOTHYROXINE 0.15 MG TAB PO SCH (06:01)
[2016-04-28] MEDS: Hydrocodone/APAP 10/325 MG TAB PO PRN (09:34)
[2016-04-28] MEDS: SITAGLIPTIN 50 MG TAB PO SCH (09:35)
[2016-04-28] MEDS: NICOTINE 21 MG/24 HR TRANSDERM SCH (09:35)
[2016-04-28] MEDS: CLOPIDOGREL 75 MG TAB PO SCH (09:35)
[2016-04-28] MEDS: CITALOPRAM 20 MG TAB PO SCH (09:36)
[2016-04-28] MEDS: FOLIC ACID 1 MG TAB PO SCH (09:36)
[2016-04-28] MEDS: ASPIRIN EC 81 MG TAB PO SCH (09:36)
[2016-04-28] MEDS: BUSPIRONE HCL 10 MG TAB PO SCH (09:36)
[2016-04-28] MEDS: MULTIVITS/MINERALS (THERAGRAN M) TAB PO SCH (09:38)
[2016-04-28] MEDS: GABAPENTIN 100 MG CAP PO SCH ×3 (09:38→21:24)
[2016-04-28] MEDS: ENOXAPARIN 40 MG/0.4 ML SYR SUBQ SCH (09:39)
[2016-04-28 11:37] VITALS: BP_SYST 93; RESP 18; TEMP 98.6
[2016-04-28] MEDS ORDERED: Furosemide 20 MG TAB PO SCH (12:10)
[2016-04-28 12:27] VITALS: BP_SYST 102
[2016-04-28 16:13] VITALS: BP_SYST 110; RESP 18; TEMP 97.9
[2016-04-28] MEDS: [UNRECOGNIZED DRUG - OTHER] PO SCH (16:42)
[2016-04-28] MEDS: Atorvastatin 20 MG TAB PO SCH (21:24)
[2016-04-28] MEDS: MIRTAZAPINE 15 MG TAB PO SCH (21:24)
[2016-04-28 22:45] VITALS: BP_SYST 115; RESP 18; TEMP 97.6
[2016-04-29] MEDS: LEVOTHYROXINE 0.15 MG TAB PO SCH (06:02)
[2016-04-29] MEDS: Hydrocodone/APAP 10/325 MG TAB PO PRN ×2 (08:38→17:29)
[2016-04-29] MEDS: GABAPENTIN 100 MG CAP PO SCH ×3 (08:39→20:56)
[2016-04-29] MEDS: LEVOFLOXACIN 750 MG TAB PO SCH (08:39)
[2016-04-29] MEDS: CLOPIDOGREL 75 MG TAB PO SCH (08:39)
[2016-04-29] MEDS: MULTIVITS/MINERALS (THERAGRAN M) TAB PO SCH (08:39)
[2016-04-29] MEDS: CITALOPRAM 20 MG TAB PO SCH (08:39)
[2016-04-29] MEDS: SITAGLIPTIN 50 MG TAB PO SCH (08:40)
[2016-04-29] MEDS: BUSPIRONE HCL 10 MG TAB PO SCH (08:40)
[2016-04-29] MEDS: ASPIRIN EC 81 MG TAB PO SCH (08:41)
[2016-04-29] MEDS: [UNRECOGNIZED DRUG - OTHER] PO SCH (08:41)
[2016-04-29] MEDS: FOLIC ACID 1 MG TAB PO SCH (08:41)
[2016-04-29] MEDS: ENOXAPARIN 40 MG/0.4 ML SYR SUBQ SCH (08:42)
[2016-04-29] MEDS: NICOTINE 21 MG/24 HR TRANSDERM SCH (08:46)
[2016-04-29 14:40] VITALS: BP_SYST 90; RESP 16; TEMP 97.9
[2016-04-29 16:44] VITALS: BP_SYST 108; RESP 18; TEMP 97.7
[2016-04-29] MEDS: MIRTAZAPINE 15 MG TAB PO SCH (20:56)
[2016-04-29] MEDS: Atorvastatin 20 MG TAB PO SCH (20:56)
[2016-04-29 22:45] VITALS: BP_SYST 121; RESP 18; TEMP 97.6
[2016-04-30] MEDS: LEVOTHYROXINE 0.15 MG TAB PO SCH (05:28)
[2016-04-30] MEDS: [UNRECOGNIZED DRUG - OTHER] PO SCH (08:46)
[2016-04-30] MEDS: CITALOPRAM 20 MG TAB PO SCH (08:46)
[2016-04-30] MEDS: BUSPIRONE HCL 10 MG TAB PO SCH (08:46)
[2016-04-30] MEDS: ASPIRIN EC 81 MG TAB PO SCH (08:46)
[2016-04-30] MEDS: SITAGLIPTIN 50 MG TAB PO SCH (08:47)
[2016-04-30] MEDS: FOLIC ACID 1 MG TAB PO SCH (08:47)
[2016-04-30] MEDS: NICOTINE 21 MG/24 HR TRANSDERM SCH (08:47)
[2016-04-30] MEDS: MULTIVITS/MINERALS (THERAGRAN M) TAB PO SCH (08:47)
[2016-04-30] MEDS: CLOPIDOGREL 75 MG TAB PO SCH (08:47)
[2016-04-30] MEDS: ENOXAPARIN 40 MG/0.4 ML SYR SUBQ SCH (08:49)
[2016-04-30] MEDS: Hydrocodone/APAP 10/325 MG TAB PO PRN ×2 (08:50→21:12)
[2016-04-30] MEDS: Furosemide 20 MG TAB PO SCH (08:56)
[2016-04-30] MEDS: GABAPENTIN 100 MG CAP PO SCH ×3 (08:56→21:06)
[2016-04-30 11:27] VITALS: BP_SYST 114; RESP 18; TEMP 98.3
[2016-04-30 16:22] VITALS: BP_SYST 88; RESP 18; TEMP 98.5
[2016-04-30 20:40] VITALS: BP_SYST 94
[2016-04-30] MEDS: MIRTAZAPINE 15 MG TAB PO SCH (21:06)
[2016-04-30] MEDS: Atorvastatin 20 MG TAB PO SCH (21:06)
[2016-05-01 01:08] VITALS: BP_SYST 108; RESP 18; TEMP 98.1
[2016-05-01] MEDS: LEVOTHYROXINE 0.15 MG TAB PO SCH (06:16)
[2016-05-01] MEDS: FOLIC ACID 1 MG TAB PO SCH (09:58)
[2016-05-01] MEDS: CLOPIDOGREL 75 MG TAB PO SCH (09:58)
[2016-05-01] MEDS: SITAGLIPTIN 50 MG TAB PO SCH (09:58)
[2016-05-01] MEDS: MULTIVITS/MINERALS (THERAGRAN M) TAB PO SCH (09:58)
[2016-05-01] MEDS: LEVOFLOXACIN 750 MG TAB PO SCH (09:58)
[2016-05-01] MEDS: [UNRECOGNIZED DRUG - OTHER] PO SCH (09:58)
[2016-05-01] MEDS: NICOTINE 21 MG/24 HR TRANSDERM SCH (09:58)
[2016-05-01] MEDS: ASPIRIN EC 81 MG TAB PO SCH (09:58)
[2016-05-01] MEDS: BUSPIRONE HCL 10 MG TAB PO SCH (09:58)
[2016-05-01] MEDS: GABAPENTIN 100 MG CAP PO SCH ×3 (09:59→21:21)
[2016-05-01] MEDS: CITALOPRAM 20 MG TAB PO SCH (09:59)
[2016-05-01] MEDS: ENOXAPARIN 40 MG/0.4 ML SYR SUBQ SCH (10:00)
[2016-05-01 10:01] VITALS: TEMP 97.7
[2016-05-01 10:02] VITALS: BP_SYST 112
[2016-05-01 10:03] VITALS: BP_SYST 116; RESP 20
[2016-05-01] MEDS: Hydrocodone/APAP 10/325 MG TAB PO PRN (10:06)
[2016-05-01] MEDS ORDERED: LEVEMIR INSULIN SUBQ SCH ×3 (15:10→21:00)
[2016-05-01 15:42] VITALS: BP_SYST 93; RESP 18; TEMP 97.4
[2016-05-01] MEDS ORDERED: TUBERCULIN PPD 5 UNIT SYR ID.VACC ONE (21:00)
[2016-05-01] MEDS: Atorvastatin 20 MG TAB PO SCH (21:20)
[2016-05-01] MEDS: MIRTAZAPINE 15 MG TAB PO SCH (21:21)
[2016-05-02 00:08] VITALS: BP_SYST 122; RESP 18; TEMP 97.8
[2016-05-02] MEDS: LEVOTHYROXINE 0.15 MG TAB PO SCH (06:09)
[2016-05-02] MEDS ORDERED: LEVEMIR INSULIN SUBQ SCH (09:00)
[2016-05-02 09:30] VITALS: BP_SYST 110
[2016-05-02 09:33] VITALS: RESP 20; TEMP 98.7
[2016-05-02] MEDS: CITALOPRAM 20 MG TAB PO SCH (10:13)
[2016-05-02] MEDS: [UNRECOGNIZED DRUG - OTHER] PO SCH (10:13)
[2016-05-02] MEDS: Furosemide 20 MG TAB PO SCH (10:14)
[2016-05-02] MEDS: GABAPENTIN 100 MG CAP PO SCH ×3 (10:14→21:07)
[2016-05-02] MEDS: CLOPIDOGREL 75 MG TAB PO SCH (10:14)
[2016-05-02] MEDS: MULTIVITS/MINERALS (THERAGRAN M) TAB PO SCH (10:14)
[2016-05-02] MEDS: ASPIRIN EC 81 MG TAB PO SCH (10:14)
[2016-05-02] MEDS: SITAGLIPTIN 50 MG TAB PO SCH (10:15)
[2016-05-02] MEDS: BUSPIRONE HCL 10 MG TAB PO SCH (10:15)
[2016-05-02] MEDS: FOLIC ACID 1 MG TAB PO SCH (10:15)
[2016-05-02] MEDS: NICOTINE 21 MG/24 HR TRANSDERM SCH (10:16)
[2016-05-02] MEDS: ENOXAPARIN 40 MG/0.4 ML SYR SUBQ SCH (10:16)
[2016-05-02] MEDS: Hydrocodone/APAP 10/325 MG TAB PO PRN ×2 (10:17→17:13)
[2016-05-02 16:49] VITALS: BP_SYST 105; RESP 18; TEMP 98.4
[2016-05-02] MEDS: Atorvastatin 20 MG TAB PO SCH (21:07)
[2016-05-02] MEDS: MIRTAZAPINE 15 MG TAB PO SCH (21:07)
[2016-05-02] MEDS: LEVEMIR INSULIN SUBQ SCH (21:08)
[2016-05-03 03:13] VITALS: BP_SYST 105; RESP 20; TEMP 97.8
[2016-05-03 03:14] VITALS: RESP 20; TEMP 97.8
[2016-05-03] MEDS: LEVOTHYROXINE 0.15 MG TAB PO SCH (06:31)
[2016-05-03] MEDS: Hydrocodone/APAP 10/325 MG TAB PO PRN ×2 (07:41→16:17)
[2016-05-03] MEDS: FOLIC ACID 1 MG TAB PO SCH (08:45)
[2016-05-03] MEDS: NICOTINE 21 MG/24 HR TRANSDERM SCH (08:45)
[2016-05-03] MEDS: SITAGLIPTIN 50 MG TAB PO SCH (08:45)
[2016-05-03] MEDS: GABAPENTIN 100 MG CAP PO SCH ×3 (08:45→20:41)
[2016-05-03] MEDS: CLOPIDOGREL 75 MG TAB PO SCH (08:45)
[2016-05-03] MEDS: MULTIVITS/MINERALS (THERAGRAN M) TAB PO SCH (08:45)
[2016-05-03] MEDS: CITALOPRAM 20 MG TAB PO SCH (08:46)
[2016-05-03] MEDS: BUSPIRONE HCL 10 MG TAB PO SCH (08:46)
[2016-05-03] MEDS: ASPIRIN EC 81 MG TAB PO SCH (08:46)
[2016-05-03] MEDS: [UNRECOGNIZED DRUG - OTHER] PO SCH (08:47)
[2016-05-03] MEDS: LEVEMIR INSULIN SUBQ SCH ×2 (08:47→20:42)
[2016-05-03] MEDS: ENOXAPARIN 40 MG/0.4 ML SYR SUBQ SCH (08:48)
[2016-05-03 10:28] VITALS: BP_SYST 95; RESP 20; TEMP 97.8
[2016-05-03 16:20] VITALS: BP_SYST 116; RESP 20; TEMP 97.7
[2016-05-03] MEDS: MIRTAZAPINE 15 MG TAB PO SCH (20:41)
[2016-05-03] MEDS: Atorvastatin 20 MG TAB PO SCH (20:41)
[2016-05-03] MEDS: SKIN TEST: READ AND RECORD XX SCH (20:44)
[2016-05-04 00:49] VITALS: BP_SYST 123; RESP 18; TEMP 98
[2016-05-04 00:50] VITALS: TEMP 98
[2016-05-04] MEDS: LEVOTHYROXINE 0.15 MG TAB PO SCH (06:11)
[2016-05-04] MEDS: ASPIRIN EC 81 MG TAB PO SCH (08:29)
[2016-05-04] MEDS: CITALOPRAM 20 MG TAB PO SCH (08:29)
[2016-05-04] MEDS: GABAPENTIN 100 MG CAP PO SCH ×3 (08:29→20:16)
[2016-05-04] MEDS: SITAGLIPTIN 50 MG TAB PO SCH (08:29)
[2016-05-04] MEDS: FOLIC ACID 1 MG TAB PO SCH (08:29)
[2016-05-04] MEDS: BUSPIRONE HCL 10 MG TAB PO SCH (08:29)
[2016-05-04] MEDS: Furosemide 20 MG TAB PO SCH (08:29)
[2016-05-04] MEDS: [UNRECOGNIZED DRUG - OTHER] PO SCH (08:30)
[2016-05-04] MEDS: MULTIVITS/MINERALS (THERAGRAN M) TAB PO SCH (08:30)
[2016-05-04] MEDS: CLOPIDOGREL 75 MG TAB PO SCH (08:30)
[2016-05-04] MEDS: NICOTINE 21 MG/24 HR TRANSDERM SCH (08:31)
[2016-05-04] MEDS: ENOXAPARIN 40 MG/0.4 ML SYR SUBQ SCH (08:31)
[2016-05-04] MEDS: LEVEMIR INSULIN SUBQ SCH ×2 (10:02→20:17)
[2016-05-04 10:29] VITALS: BP_SYST 113; RESP 20; TEMP 98.2
[2016-05-04] MEDS: Hydrocodone/APAP 10/325 MG TAB PO PRN (16:22)
[2016-05-04 20:10] VITALS: BP_SYST 109; RESP 20; TEMP 97.8
[2016-05-04] MEDS: Atorvastatin 20 MG TAB PO SCH (20:16)
[2016-05-04] MEDS: MIRTAZAPINE 15 MG TAB PO SCH (20:16)
[2016-05-05 02:35] VITALS: BP_SYST 117; RESP 20; TEMP 97.4
[2016-05-05 02:36] VITALS: TEMP 97.4
[2016-05-05] MEDS: LEVOTHYROXINE 0.15 MG TAB PO SCH (05:46)
[2016-05-05] MEDS: LEVEMIR INSULIN SUBQ SCH (08:16)
[2016-05-05] MEDS: Hydrocodone/APAP 10/325 MG TAB PO PRN (08:16)
[2016-05-05] MEDS: CLOPIDOGREL 75 MG TAB PO SCH (08:17)
[2016-05-05] MEDS: ASPIRIN EC 81 MG TAB PO SCH (08:17)
[2016-05-05] MEDS: CITALOPRAM 20 MG TAB PO SCH (08:17)
[2016-05-05] MEDS: GABAPENTIN 100 MG CAP PO SCH (08:17)
[2016-05-05] MEDS: SITAGLIPTIN 50 MG TAB PO SCH (08:17)
[2016-05-05] MEDS: [UNRECOGNIZED DRUG - OTHER] PO SCH (08:17)
[2016-05-05] MEDS: BUSPIRONE HCL 10 MG TAB PO SCH (08:17)
[2016-05-05] MEDS: MULTIVITS/MINERALS (THERAGRAN M) TAB PO SCH (08:17)
[2016-05-05] MEDS: NICOTINE 21 MG/24 HR TRANSDERM SCH (08:18)
[2016-05-05] MEDS: ENOXAPARIN 40 MG/0.4 ML SYR SUBQ SCH (08:19)
[2016-05-05] MEDS: FOLIC ACID 1 MG TAB PO SCH (08:19)
[2016-05-05 09:56] VITALS: BP_SYST 101; TEMP 98.2
[2016-05-05 13:33] VITALS: BP_SYST 101; RESP 20; TEMP 98.2
== END 2016-05-05 14:40 | DRG 91 ==
LOC: NF 23:20
PROVIDERS: ADMIT Family Medicine; ATTEND Family Medicine
DX: R26.9 Unspecified abnormalities of gait and mobility (principal); I63.9 Cerebral infarction, unspecified; N17.9 Acute kidney failure, unspecified; D61.818 Other pancytopenia; N12 Tubulo-interstitial nephritis, not specified as acute or chronic; N30.80 Other cystitis without hematuria; E11.65 Type 2 diabetes mellitus with hyperglycemia; D50.9 Iron deficiency anemia, unspecified; K74.60 Unspecified cirrhosis of liver; B96.20 Unspecified Escherichia coli [E. coli] as the cause of diseases classified elsewhere
CPT/HCPCS: 36415; 36430; 80048; 80053; 82533; 82550; 82728; 82947; 83540; 83735; 83880; 84100; 84466; 85025; 86580; 86850; 86900; 86901; 86923; 94799; 99305; 99308; 99309; 99316